=== PATIENT | male | born 1995 | race Caucasian/White ===

== ENCOUNTER 2016-11-26 18:58 | Emergency (ER) | payer MEDICAID ==
[~2016-11-26] VITALS: Ht 167.6 cm; Wt 63.4 kg
[2016-11-26 19:02] VITALS: BP 121/75
[2016-11-26 19:57] LABS: HEMATOCRIT 48.7 % (39.2-51.8); HEMOGLOBIN 16.4 g/dL (13.7-18.0); WHITE BLOOD COUNT 8.4 x10^3/uL (3.4-10)
[2016-11-26] MEDS ORDERED: AZITHROMYCIN 250 MG TABLET ONE (19:59)
[2016-11-26] MEDS ORDERED: CEFTRIAXONE 250 MG ONE (19:59)
[2016-11-26] MEDS ORDERED: AZITHROMYCIN 500 MG TABLET PO ONE (20:00)
[2016-11-26] MEDS ORDERED: CEFTRIAXONE 250 MG IM ONE (20:00)
[2016-11-26 20:09] LABS: BLOOD UREA NITROGEN 14 mg/dL (7-18)
== END 2016-11-26 20:47 | disposition home or self-care (01) ==
LOC: ED 20:30
DX: N34.1 Nonspecific urethritis (principal); R30.0 Dysuria
CPT/HCPCS: 36415; 80048; 81001; 82040; 85025; 87086; 87491; 87591; 96372; 99284; J0696